=== PATIENT | female | born 1950 | race Caucasian/White ===

== ENCOUNTER 2019-08-04 09:51 | Observation (INO) | payer MEDICARE, MEDICAID ==
[~2019-08-04] VITALS: Ht 162.6 cm; Wt 85.8 kg
[2019-08-04] MEDS ORDERED: TRAZ300T2 PO (10:37)
[2019-08-04] MEDS ORDERED: ASCO500C10 PO (10:37)
[2019-08-04] MEDS ORDERED: LORA2ORA7 PO (10:37)
[2019-08-04] MEDS ORDERED: BUPR150T8 PO (10:37)
[2019-08-04] MEDS ORDERED: B CO1TAB14 PO (10:37)
[2019-08-04] MEDS ORDERED: VIT1TABL3 PO (10:37)
[2019-08-04] MEDS ORDERED: SERT100T32 PO (10:37)
[2019-08-04 10:42] VITALS: BP 138/81
[2019-08-04] MEDS ORDERED: ONDANSETRON 2MG/ML, 2ML IV PRN (11:00)
[2019-08-04] MEDS ORDERED: EPHEDRINE 50 MG/ML, 1ML IVPush PRN (11:00)
[2019-08-04] MEDS ORDERED: FENTANYL PF 100 MCG/2ML IV PRN (11:00)
[2019-08-04] MEDS ORDERED: MEPERIDINE/PF 25MG/ML,1ML IVPush PRN (11:00)
[2019-08-04] MEDS ORDERED: hydrALAzine 20 MG/ML, 1ML IV PRN (11:00)
[2019-08-04] MEDS ORDERED: PROMETHAZINE 25 MG/ML, 1ML IV PRN (11:00)
[2019-08-04] MEDS ORDERED: OXYcodone 5 MG/5 ML ORAL.SOL UDC PO PRN (11:00)
[2019-08-04] MEDS ORDERED: LABETALOL 5MG/ML, 20ML IV PRN (11:00)
[2019-08-04] MEDS ORDERED: HYDROmorphone 2 MG/ML, 1ML IVPush PRN (11:00)
[2019-08-04] MEDS ORDERED: FENTANYL PF 100 MCG/2ML ONE (11:06)
[2019-08-04] MEDS ORDERED: LACTATED RINGERS 1,000 ML IV SCH (11:14)
[2019-08-04] MEDS ORDERED: GABAPENTIN 300 MG CAPSULE PO ONE (11:30)
[2019-08-04] MEDS ORDERED: ACETAMINOPHEN 500 MG TABLET PO ONE (11:30)
[2019-08-04] MEDS ORDERED: BUPIVACAINE/EPI 0.5% 1:200K ONE (11:36)
[2019-08-04] MEDS ORDERED: CEFAZOLIN 1,000 MG ONE (11:53)
[2019-08-04] MEDS ORDERED: DEXAMETHASONE 4 MG/ML, 1ML ONE (11:53)
[2019-08-04] MEDS ORDERED: KETOROLAC 30 MG/1 ML ONE (12:00)
[2019-08-04] MEDS ORDERED: ONDANSETRON 2MG/ML, 2ML ONE (12:00)
[2019-08-04] MEDS ORDERED: PROPOFOL 10 MG/ML, 20ML ONE ×2 (12:11)
[2019-08-04] MEDS ORDERED: SUCCINYLCHOLINE 20 MG/ML, 10ML ONE ×2 (12:11)
[2019-08-04 18:30] VITALS: BP 120/70
[2019-08-04 18:57] LABS: BASOPHILS # (AUTO) 0.05 x10^3/uL (0-0.1); BASOPHILS % (AUTO) 1 % (0-1); EOSINOPHILS % (AUTO) 0 % (1-7); LYMPHOCYTES # (AUTO) 0.63 x10^3/uL (1-3.4); LYMPHOCYTES % (AUTO) 7 % (22-44); MD NO; MEAN CORPUSCULAR HEMOGLOBIN 30.9 pg (27.0-34.8); MEAN CORPUSCULAR HGB CONC 32.4 g/dL (32.4-35.8); MEAN CORPUSCULAR VOLUME 95.3 fL (80-100); MEAN PLATELET VOLUME 9.1 fL (7.4-10.4); MONOCYTES # (AUTO) 0.02 x10^3/uL (0.2-0.8); MONOCYTES % (AUTO) 0 % (2-9); NEUTROPHILS # (AUTO) 7.85 x10^3/uL (1.8-6.8); NEUTROPHILS % (AUTO) 92 % (42-75); PLATELET COUNT 231 x10^3/uL (130-400); RED BLOOD COUNT 4.15 x10^6/uL (3.82-5.3); RED CELL DISTRIBUTION WIDTH 12.3 % (9.6-15.2)
[2019-08-04 19:14] VITALS: BP 120/70
[2019-08-04] MEDS ORDERED: ONDANSETRON 2MG/ML, 2ML IVPush PRN (20:00)
[2019-08-04] MEDS ORDERED: DIPHENHYDRAMINE 50 MG/ML, 1ML IVPush PRN (20:00)
[2019-08-04] MEDS: LACTATED RINGERS 1,000 ML IV SCH (20:00)
[2019-08-04] MEDS ORDERED: KETOROLAC 30 MG/1 ML IV PRN (20:00)
[2019-08-04] MEDS ORDERED: MORPHINE SULFATE 4 MG/ML, 1ML IVPush PRN (20:00)
[2019-08-04] MEDS: OXYcodone/APAP 5/325MG TABLET PO PRN (21:29)
[2019-08-05 00:52] VITALS: BP 119/67
[2019-08-05 03:46] VITALS: BP 102/63
[2019-08-05] MEDS: LACTATED RINGERS 1,000 ML IV SCH (05:28)
[2019-08-05 07:47] VITALS: BP 120/74
[2019-08-05] MEDS: OXYcodone/APAP 5/325MG TABLET PO PRN (08:41)
[2019-08-05] MEDS ORDERED: OXYC-302 PO (09:21)
[2019-08-05 10:00] VITALS: BP 124/68
[2019-08-05] MEDS ORDERED: ENOXAPARIN 40 MG/0.4 ML SQ SCH (17:00)
== END 2019-08-05 10:35 | disposition home or self-care (01) ==
LOC: OUT 09:51 → ORIP 17:54 → 4NE 18:22 → DCLOUNGE 08-05 10:28
PROVIDERS: ADMIT Surgery; ATTEND Surgery
DX: I83.12 Varicose veins of left lower extremity with inflammation (principal); F41.9 Anxiety disorder, unspecified; Z79.899 Other long term (current) drug therapy
CPT/HCPCS: 36415; 37765; 85025; 93005; G0378; J0330; J0690; J1100; J1885; J2405; J2704; J3010; J7120

== ENCOUNTER 2019-12-14 09:44 | Emergency (ER) | payer MEDICARE, MEDICAID ==
[~2019-12-14] VITALS: Ht 162.6 cm; Wt 84.0 kg
[~2019-12-14 09:44] MED LIST: ASCO500C10 PO; B CO1TAB14 PO; BUPR150T8 PO; LORA2ORA7 PO; OXYC-302 PO; SERT100T32 PO; TRAZ300T2 PO; VIT1TABL3 PO
[2019-12-14 09:45] VITALS: BP 150/82
[2019-12-14] MEDS ORDERED: SODIUM CHLORIDE FLUSH 10ML SYR IVF ONE (10:00)
[2019-12-14] MEDS ORDERED: SODIUM CHLORIDE 0.9% 1,000ML IVBOLUS ONE (10:00)
[2019-12-14] MEDS ORDERED: PROMETHAZINE 25 MG/ML, 1ML IM ONE (10:00)
[2019-12-14] MEDS ORDERED: MAGNESIUM SULFATE 1 GM, THIAMINE 100 MG, FOLIC ACID 1 MG, MVI ADULT 10 ML in SODIUM CHL... IV ONE (10:00)
[2019-12-14] MEDS ORDERED: PROMETHAZINE 25 MG/ML, 1ML ONE (10:06)
[2019-12-14 10:26] LABS: BASOPHILS % (AUTO) 1 % (0-1); EOSINOPHILS # (AUTO) 0.05 x10^3/uL (0-0.4); EOSINOPHILS % (AUTO) 1 % (1-7); LYMPHOCYTES # (AUTO) 2.05 x10^3/uL (1-3.4); LYMPHOCYTES % (AUTO) 27 % (22-44); MD NO; MEAN CORPUSCULAR HEMOGLOBIN 30.3 pg (27.0-34.8); MEAN CORPUSCULAR HGB CONC 33.4 g/dL (32.4-35.8); MEAN CORPUSCULAR VOLUME 90.8 fL (80-100); MEAN PLATELET VOLUME 8.2 fL (7.4-10.4); MONOCYTES # (AUTO) 0.59 x10^3/uL (0.2-0.8); MONOCYTES % (AUTO) 8 % (2-9); NEUTROPHILS # (AUTO) 4.91 x10^3/uL (1.8-6.8); NEUTROPHILS % (AUTO) 64 % (42-75); PLATELET COUNT 253 x10^3/uL (130-400); RED BLOOD COUNT 4.77 x10^6/uL (3.82-5.3); RED CELL DISTRIBUTION WIDTH 13.8 % (9.6-15.2)
[2019-12-14] MEDS ORDERED: LORazepam 2 MG/ML, 1ML ONE (10:28)
[2019-12-14] MEDS ORDERED: LORazepam 2 MG/ML, 1ML IVPush PRN (10:30)
[2019-12-14 10:39] LABS: ALANINE AMINOTRANSFERASE 47 U/L (12-78); ALBUMIN 3.7 g/dL (3.4-5.0); ANION GAP 15 mmol/L (5-15); CALCIUM 8.9 mg/dL (8.5-10.1); CHLORIDE 107 mmol/L (98-107); CREATININE 0.88 mg/dL (0.55-1.02)
--- NOTE | 2019-12-14 10:39 | NUR ---
IV STARTED, LABS DRAWN AND SENT. PT MEDICATED PER MAR. PROVIDED WITH WARM BLANKETS. DENIES ANY FURTHER NEEDS OR CONCERNS AT THIS TIME. CALL LIGHT IN REACH.
[2019-12-14 10:41] LABS: ALKALINE PHOSPHATASE 128 U/L (45-117); BILIRUBIN,TOTAL 0.5 mg/dL (0.2-1.0); TOTAL PROTEIN 7.3 g/dL (6.4-8.2)
[2019-12-14] MEDS ORDERED: ONDANSETRON 2MG/ML, 2ML IVPush ONE (11:00)
[2019-12-14] MEDS ORDERED: ONDANSETRON 2MG/ML, 2ML ONE (11:08)
== END 2019-12-14 11:21 | disposition home or self-care (01) ==
LOC: ED 10:16
DX: R11.2 Nausea with vomiting, unspecified (principal); E86.0 Dehydration; F10.239 Alcohol dependence with withdrawal, unspecified; R00.0 Tachycardia, unspecified; Z90.710 Acquired absence of both cervix and uterus; Y90.9 Presence of alcohol in blood, level not specified
CPT/HCPCS: 36415; 80053; 80307; 83690; 83735; 85025; 96365; 96372; 96375; 99284; J2060; J2405; J2550; J3411; J3475; J7030

== ENCOUNTER → 2019-12-30 | Outpatient (CLI) | payer MEDICARE, MEDICAID | END | disposition home or self-care (01) | LOC: RAD 11:26 | PROVIDERS: ATTEND Nurse Practitioner | DX: S32.048A Other fracture of fourth lumbar vertebra, initial encounter for closed fracture (principal); M47.817 Spondylosis without myelopathy or radiculopathy, lumbosacral region; M85.88 Other specified disorders of bone density and structure, other site; X58.XXXA Exposure to other specified factors, initial encounter; Y93.89 Activity, other specified; Y92.89 Other specified places as the place of occurrence of the external cause; Y99.8 Other external cause status | CPT/HCPCS: 72110; 73523 ==

== ENCOUNTER → 2020-03-01 | Outpatient (CLI) | payer MEDICARE, MEDICAID | END | disposition home or self-care (01) | LOC: CFH 11:23 | PROVIDERS: ATTEND Nurse Practitioner | DX: S32.040S Wedge compression fracture of fourth lumbar vertebra, sequela (principal); M85.88 Other specified disorders of bone density and structure, other site; M25.712 Osteophyte, left shoulder; X58.XXXS Exposure to other specified factors, sequela | CPT/HCPCS: 77080 ==

== ENCOUNTER 2020-11-22 11:46 | Emergency (ER) | payer MEDICARE, MEDICAID ==
[~2020-11-22] VITALS: Ht 162.6 cm; Wt 84.1 kg
[~2020-11-22 11:46] MED LIST changes: -OXYC-302 PO; +OXYC1TAB14 PO
[2020-11-22 11:57] VITALS: BP 138/64
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
[2020-11-22] MEDS ORDERED: LORazepam 1MG TABLET PO ONE (12:30)
[2020-11-22] MEDS ORDERED: LORazepam 1MG TABLET ONE (12:32)
--- NOTE | 2020-11-22 12:37 | NUR ---
TASK RN: MEDICATED PER EMAR FOR ANXIETY LAB AT BEDSIDE- SAMPLE OBTAINED
--- NOTE | 2020-11-22 12:49 | NUR ---
PT TO RESTROOM. REFUSING TO GIVE URINE SAMPLE STATING "I AIN'T GONNA GIVE YOU SHIT".
[2020-11-22 12:52] LABS: BASOPHILS % (AUTO) 0 % (0-1); EOSINOPHILS % (AUTO) 1 % (1-7); LYMPHOCYTES % (AUTO) 40 % (22-44); MEAN CORPUSCULAR HEMOGLOBIN 29.7 pg (27.0-34.8); MEAN CORPUSCULAR HGB CONC 33.1 g/dL (32.4-35.8); MEAN PLATELET VOLUME 8.1 fL (7.4-10.4); MONOCYTES % (AUTO) 7 % (2-9); NEUTROPHILS % (AUTO) 51 % (42-75); PLATELET COUNT 331 x10^3/uL (130-400); RED BLOOD COUNT 4.72 x10^6/uL (3.82-5.3)
[2020-11-22 12:54] LABS: MD NO
[2020-11-22 13:01] LABS: ALANINE AMINOTRANSFERASE 30 U/L (12-78); ALBUMIN 3.6 g/dL (3.4-5.0); ANION GAP 10 mmol/L (5-15); CALCIUM 8.3 mg/dL (8.5-10.1); CHLORIDE 113 mmol/L (98-107); CREATININE 0.71 mg/dL (0.55-1.02); SALICYLATE LEVEL < 1.7 mg/dL (2.8-20.0)
[2020-11-22 13:03] LABS: ALKALINE PHOSPHATASE 141 U/L (45-117); BILIRUBIN,TOTAL 0.1 mg/dL (0.2-1.0); TOTAL PROTEIN 7.5 g/dL (6.4-8.2)
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
--- NOTE | 2020-11-22 13:45 | NUR ---
PT PROVIDED W/ SI LUNCH TRAY.
--- NOTE | 2020-11-22 14:10 | NUR ---
CELL PHONE REMOVED FROM PT AND PLACED W/ PERSONAL BELONGINGS. SECURITY REMOVED PERSONAL BELONGINGS BAGS (2 OF 2) AND PLACED IN OUTDOOR LOCKER.
--- NOTE | 2020-11-22 14:39 | NUR ---
PT SLEEPING ON GURDAVID. WILBERT. SITTER REMAINS AT BEDSIDE. ROOM REMAINS SECURE.
--- NOTE | 2020-11-22 16:17 | NUR ---
TASK RN: PATIENT LAYING IN WILBERT ZEPEDA, SUICIDE PRECAUTIONS IN PLACE, SITTER IN DOORWAY.
--- NOTE | 2020-11-22 17:23 | NUR ---
PT REFUSED TO UTILIZE BREATHALYZER.
[2020-11-22 17:45] LABS: AMPHETAMINE SCREEN, URINE Negative (Negative); BARBITURATE SCREEN, URINE Negative (Negative); BENZODIAZEPINE SCREEN, URINE Negative (Negative); CANNABINOID SCREEN, URINE Negative (Negative); COCAINE SCREEN, URINE Negative (Negative); METHADONE SCREEN, URINE Negative (Negative); OPIATE SCREEN, URINE Negative (Negative)
--- NOTE | 2020-11-22 17:56 | NUR ---
ERP DR. DUVAL AT BEDSIDE TO SPEAK W/ PT. THIS RN AT BEDSIDE. PT STATES SHE DOES NOT WANT TO KILL HERSELF. STATES SHE DOES NOT WANT TO HURT OTHER PEOPLE. PT ALLOWED THIS RN TO PERFORM BREATHALYZER. NOTED TO BE 0.[address] DUVAL AWARE.
--- NOTE | 2020-11-22 20:29 | NUR ---
PT NOW SOBER AT 0.063 DENIES SI/HI. DENIES PLAN TO HARM SELF. PER ERP DR. DUVAL PT OKAY TO DC.
== END 2020-11-22 20:35 | disposition home or self-care (01) ==
LOC: ED 15:54
DX: F10.220 Alcohol dependence with intoxication, uncomplicated (principal); F41.9 Anxiety disorder, unspecified; R45.851 Suicidal ideations; Z72.9 Problem related to lifestyle, unspecified; Z90.710 Acquired absence of both cervix and uterus; Y90.0 Blood alcohol level of less than 20 mg/100 ml
CPT/HCPCS: 36415; 72110; 80053; 80299; 80307; 80320; 80329; 85025; 99284; G0480